=== PATIENT | female | born 1940 | race Caucasian/White ===

== ENCOUNTER 2022-01-03 09:41 | Outpatient (CLI) | payer MEDICARE, SELFPAY ==
--- NOTE | ~2022-01-03 | DEXA_ITS ---
Bone Density Report Name: JOSE J TORRES Age: 81 Sex: Female Ethnicity: White Date of : 1940 Indication: osteopenia; height loss; prior fracture; Referring Provider: WILMER GUERRERO Study: Bone densitometry was performed. Exam Date: January 03, 2022 Accession number: [id number] Bone Density: Region BMD T-score Z-score Classification AP Spine(L1-L4) 0.884 -1.5 1.3 Osteopenia Femoral Neck (Left) 0.609 -2.2 0.3 Osteopenia Total Hip (Left) 0.720 -1.8 0.4 Osteopenia Femoral Neck (Right) 0.635 -1.9 0.5 Osteopenia Total Hip (Right) 0.732 -1.7 0.5 Osteopenia Total Hip Mean 0.726 -1.8 0.5 Osteopenia World Health Organization criteria for BMD impression classify patients as: Normal (T-score at or above -1.0), Osteopenia (T-score between -1.0 and -2.5), or Osteoporosis (T-score at or below -2.5). 10-year Fracture Risk(1): Major Osteoporotic Fracture 23% Hip Fracture 6.9% Reported Risk Factors: [place] (), Neck BMD=0.609, BMI=27.3, previous fracture (1) FRAX(R) Version 3.08. Fracture probability calculated for an untreated patient. Fracture probability may be lower if the patient has received treatment. Previous Exams: Region Exam Age BMD T-score BMD Change BMD Change Date g/cm2 vs Baseline vs Previous AP Spine (L1-L4) 01/03/2022 81 0.884 -1.5 0.010 (1.1%) 0.010 (1.1%) 07/07/2018 78 0.874 -1.6 Total Hip(Left) 01/03/2022 81 0.720 -1.8 -0.007 (-1.0%) -0.007 (-1.0%) 07/07/2018 78 0.727 -1.8 Total Hip(Right) 01/03/2022 81 0.732 -1.7 0.056 (8.3%)* 0.056 (8.3%)* 07/07/2018 78 0.676 -2.2 *Denotes significance at 95% confidence level, LSC for AP Spine = 0.022 g/cm2, LSC for Total Hip = 0.027 g/cm2 Clinical Information Provided by Patient: Has had a low trauma fracture Patient maximum height was 63 Menopause Age: 44 No regular weight bearing exercise Onset of menses at age 10 Number of children 0 Impression: The patient has low bone mass, based on the Left Femoral Neck T-score. The patient has an estimated ten-year risk of hip fracture of 6.9% and an estimated ten-year risk of major fracture of 23%, based on the WHO FRAX algorithm. The patient has risk factors, including: previous fracture. No significant bone loss was observed. Discussion: BONE DENSITY IS LOW AT ONE OR MORE SKELETAL SITES. THE PATIENT'S BMD AND CLINICAL RISK FACTORS CONTRIBUTE TO THIS PATIENT'S HIGH RISK OF FR
--- NOTE | ~2022-01-03 | MM_ITS ---
EXAMINATION: MM screening lis BI w brant HISTORY: Screening mammogram, family history of breast cancer in her mother. TECHNIQUE: Craniocaudal and mediolateral oblique 3-D tomosynthesis images were obtained and synthetic 2-D images were generated. CAD analysis was submitted and interpreted. COMPARISON: 07/07/2018, 06/03/2017, 05/30/2016 BREAST PARENCHYMAL COMPOSITION: The breasts are almost entirely fatty. FINDINGS: There is no suspicious mass, calcification, or architectural distortion to suggest malignan cy in either breast. There has been no suspicious interval change. IMPRESSION: 1. No mammographic evidence of malignancy. 2. Recommend routine screening mammography while the patient remains in good health. BI-RADS Category 1: Negative Reviewed, dictated and finalized at location D. IMPRESSION: 1. No mammographic evidence of malignancy. 2. Recommend routine screening mammography while the patient remains in good he alth. BI-RADS Category 1: Negative
== END 2022-01-03 09:42 | disposition home or self-care (01) ==
PROVIDERS: PCP Family Medicine; Visit Provider Family Medicine
DX: Z12.31 Encounter for screening mammogram for malignant neoplasm of breast (principal); M81.0 Age-related osteoporosis without current pathological fracture; M85.88 Other specified disorders of bone density and structure, other site; M85.852 Other specified disorders of bone density and structure, left thigh; M85.851 Other specified disorders of bone density and structure, right thigh
CPT/HCPCS: 77063; 77067; 77080

== ENCOUNTER 2023-06-17 09:20 | Outpatient (CLI) | payer MEDICARE, SELFPAY ==
--- NOTE | ~2023-06-17 | MM_ITS ---
EXAMINATION: MM screening lis BI w brant HISTORY: Screening mammogram TECHNIQUE: Craniocaudal and mediolateral oblique 3-D tomosynthesis images were obtained and synthetic 2-D images were generated. CAD analysis was submitted and interpreted. COMPARISON: 01/03/2022, 07/07/2018 bilateral screening mammogram examinations BREAST PARENCHYMAL COMPOSITION: The breasts are almost entirely fatty. FINDINGS: There is no evidence of suspicious mass, calcification, or architectural distortion to sugg est malignancy in either breast. There has been no suspicious interval change. IMPRESSION: 1. No mammographic evidence of malignancy. 2. Recommend routine screening mammography in one year. BI-RADS Category 1: Negative Reviewed, dictated and finalized at location A. ENER HELPER
== END 2023-06-17 09:21 | disposition home or self-care (01) ==
LOC: ANHIMG 09:25
PROVIDERS: PCP Family Medicine; Visit Provider Nurse Practitioner Family
DX: Z12.31 Encounter for screening mammogram for malignant neoplasm of breast (principal)
CPT/HCPCS: 77063; 77067

== ENCOUNTER 2024-07-01 15:16 | Outpatient (CLI) | payer MEDICARE, SELFPAY ==
[2024-07-01 19:59] LABS: Alanine Aminotransferase 16 U/L (6-35); Albumin Level 4.5 g/dL (3.5-5.1); Alkaline Phosphatase 84 U/L (38-126); Anion Gap 11 mmol/L (4-12); Aspartate Amino Transferase 26 U/L (14-36); Bilirubin,Total 0.5 mg/dL (0.2-1.3); Blood Urea Nitrogen 19 mg/dL (7-17); Calcium 9.9 mg/dL (8.4-10.2); Carbon Dioxide 28 mmol/L (22-30); Chloride 105 mmol/L (98-107); Estimated Glomerular Filt Rate > 60; Glucose 99 mg/dL (65-110); Potassium 3.8 mmol/L (3.4-5.0); Sodium 144 mmol/L (137-145)
[2024-07-02 00:35] LABS: Vitamin D 25 Hydroxy 25.3 ng/mL
== END 2024-07-01 15:17 | disposition home or self-care (01) ==
LOC: ANHGOSHLAB 15:17
PROVIDERS: PCP Family Medicine; Visit Provider Family Medicine
DX: E78.5 Hyperlipidemia, unspecified (principal); I10 Essential (primary) hypertension; E03.9 Hypothyroidism, unspecified; E55.9 Vitamin D deficiency, unspecified; E53.8 Deficiency of other specified B group vitamins; M81.0 Age-related osteoporosis without current pathological fracture
CPT/HCPCS: 36415; 80053; 82306; 82607; 84443

== ENCOUNTER 2024-08-06 16:16 | Outpatient (CLI) | payer MEDICARE, SELFPAY ==
--- NOTE | ~2024-08-06 | MM_ITS ---
EXAMINATION: MM screening [facility] BI w brant HISTORY: Screening TECHNIQUE: Craniocaudal and mediolateral oblique 3-D tomosynthesis images were obtained and synthetic 2-D images were generated. CAD analysis was submitted and interpreted. COMPARISON: Comparison to multiple prior studies sequentially, with oldest reviewed study dated 05/30 2. BREAST PARENCHYMAL COMPOSITION: Not Dense: The breasts are almost entirely fatty. FINDINGS: There is no evidence of suspicious mass, calcification, or architectural distortion to sugg est malignancy in either breast. There has been no suspicious interval change. IMPRESSION: 1. No mammographic evidence of malignancy. 2. Recommend routine screening mammography in one year. BI-RADS Category 1: Negative Reviewed, dictated and finalized at location A.
== END 2024-08-06 16:17 | disposition home or self-care (01) ==
PROVIDERS: PCP Family Medicine; Visit Provider Family Medicine
DX: Z12.31 Encounter for screening mammogram for malignant neoplasm of breast (principal)
CPT/HCPCS: 77063; 77067

== ENCOUNTER 2024-08-31 08:18 | Outpatient (CLI) | payer MEDICARE, SELFPAY ==
--- NOTE | ~2024-08-31 | DEXA_ITS ---
Bone Density Report Name: JOSE J TORRES Age: 84 Sex: Female Ethnicity: White Date of : 1940 Indication: osteopenia; height loss; prior fracture; Referring Provider: WILMER GUERRERO Study: Bone densitometry was performed. Exam Date: August 31, 2024 Accession number: [id number] Bone Density: Region BMD T-score Z-score Classification AP Spine(L1-L4) 0.854 -1.8 1.1 Osteopenia Femoral Neck (Left) 0.589 -2.3 0.2 Osteopenia Total Hip (Left) 0.763 -1.5 0.9 Osteopenia Femoral Neck (Right) 0.588 -2.4 0.2 Osteopenia Total Hip (Right) 0.705 -1.9 0.4 Osteopenia Total Hip Mean 0.734 -1.7 0.7 Osteopenia World Health Organization criteria for BMD impression classify patients as: Normal (T-score at or above -1.0), Osteopenia (T-score between -1.0 and -2.5), or Osteoporosis (T-score at or below -2.5). 10-year Fracture Risk(1): Major Osteoporotic Fracture 25% Hip Fracture 8.0% Reported Risk Factors: [place] (), Neck BMD=0.588, BMI=25.5, previous fracture (1) FRAX(R) Version 3.08. Fracture probability calculated for an untreated patient. Fracture probability may be lower if the patient has received treatment. Previous Exams: Region Exam Age BMD T-score BMD Change BMD Change Date g/cm2 vs Baseline vs Previous AP Spine (L1-L4) 08/31/2024 84 0.854 -1.8 -0.020 (-2.3%) -0.030 (-3.4%) 01/03/2022 81 0.884 -1.5 0.010 (1.1%) 0.010 (1.1%) 07/07/2018 78 0.874 -1.6 Total Hip(Left) 08/31/2024 84 0.763 -1.5 0.036 (5.0%)* 0.043 (6.0%)* 01/03/2022 81 0.720 -1.8 -0.007 (-1.0%) -0.007 (-1.0%) 07/07/2018 78 0.727 -1.8 Total Hip(Right) 08/31/2024 84 0.705 -1.9 0.029 (4.3%)* -0.027 (-3.7%) 01/03/2022 81 0.732 -1.7 0.056 (8.3%)* 0.056 (8.3%)* 07/07/2018 78 0.676 -2.2 *Denotes significance at 95% confidence level, LSC for AP Spine = 0.022 g/cm2, LSC for Total Hip = 0.027 g/cm2 Clinical Information Provided by Patient: Has had a low trauma fracture Patient maximum height was 63.0 Menopause Age: 44 No regular weight bearing exercise Onset of menses at age 10 Number of children 0 Impression: The patient has low bone mass, based on the Right Femoral Neck T-score. The patient has an estimated ten-year risk of hip fracture of 8% and an estimated ten-year risk of major fracture of 25%, based on the WHO FRAX algorithm. The patient has risk factors, including: previous fracture. The BMD for the AP Spine (L1-L4) decreased, changing by -3.4% since the last DXA exam. Discussion: BONE DENSITY IS LOW AT ONE OR MORE SKELETAL SITES. THE PATIENT'S BMD AND CLINICAL RISK FACTORS CONTRIBUTE TO THIS PATIENT'S HIGH RISK OF FRACTURE. This patient's lowest T-score is low at one or more skeletal sites. It meets the World Health Organization's (WHO) criteria for “low bone mass” (T-score between -1.0 and -2.5). The patient's 10-year risk of hip fracture and 10 year risk of a major osteoporotic fracture as calculated by FRAX exceeds the threshold where pharmacological therapy is recommended by the National Osteoporosis Foundation (NOF). However, all treatment decisions require clinical judgment and consideration of individual patient factors, including patient preferences, comorbidities, previous drug use, risk factors not captured in the FRAX model (e.g., frailty, falls, vitamin D deficiency, increased bone turnover, interval significant decline in bone density) and possible under or overestimation of fracture risk by FRAX. The patient should follow a healthful lifestyle (good nutrition with adequate calcium and vitamin D, and appropriate weight-bearing exercise). Follow-Up: Consider a repeat BMD and Vertebral Fracture Assessment (VFA) exam in 2 years or sooner if medically necessary, to reassess this patient's status. Reported by: CARLOS on 08/31/2024 8:52:00 AM. Reviewed, dictated and finalized at location A.
== END 2024-08-31 08:19 | disposition home or self-care (01) ==
LOC: ANHIMG 08:19
PROVIDERS: PCP Family Medicine; Visit Provider Family Medicine
DX: M81.0 Age-related osteoporosis without current pathological fracture (principal); M85.88 Other specified disorders of bone density and structure, other site; M85.852 Other specified disorders of bone density and structure, left thigh; M85.851 Other specified disorders of bone density and structure, right thigh
CPT/HCPCS: 77080

== ENCOUNTER 2025-01-22 01:21 | Day surgery (SDC) | payer MEDICARE, SELFPAY ==
[2025-01-14 08:42] VITALS: BMI 26.2
[2025-01-22 08:46] VITALS: BP 171/82; PULSE 88; RESP 18; TEMP 36; O2SAT 100
[2025-01-22] MEDS: LACTATED RINGERS 1,000 ML 150 ML IV CONT (09:01)
[2025-01-22] MEDS: SIMETHICONE ORAL SUSPENSION 20 MG/0.3 ML 30 ML BOTTLE 1.8 ML PO (09:02)
--- NOTE | 2025-01-22 09:26 | P.PNAN_ITS ---
Anes - Initial Pre Proc Eval Procedure: Operation Date: 01/22/25 10:00 Proposed Procedures p Esophagogastroduodenoscopy - Elfego Hogue MD Date/Time: 01/22/25 09:26 Surgeon: Elfego Hogue MD Pre Op Diagnosis: Esophageal obstruction Patient Data Age: 84 Gender: F Height: 1.55 m Weight: 62.5 kg Last Vital Signs Temp 36.0 C L 01/22/25 08:46 Pulse 88 01/22/25 08:46 Resp 18 01/22/25 08:46 BP 171/82 H 01/22/25 08:46 Pulse Ox 100 01/22/25 08:46 O2 Del Method Room Air 01/22/25 08:46 Allergies Allergy/AdvReac Type Severity Reaction Status Date / Time No Known Allergies Allergy Verified 01/22/25 08:43 Home Medications ?Medication ?Instructions ?Recorded ?Confirmed ?Type calcium carbonate (Tums) 200 mg PO BID #90 tabs 07/2401/22/25 Rx metoprolol succinate 50 mg See Rx Instructions .Route 03/31/24 01/22/25 Rx tablet,extended release 24 hr .COMPLEX #90 tabs amlodipine 5 mg tablet See Rx Instructions .Route 0 08/19/24 01/22/25 Rx .COMPLEX #90 tabs Patient hx anesthesia problems: none Family hx anesthesia problems: none Results Review: All pre-operative results and documents have been reviewed as part of the pre- operative evaluation. [facility] Past Medical History Medical History Hyperlipidemia, unspecified Hypothyroid Cerebral ischemia Essential (primary) hypertension Broken thumb Overweight (BMI 25.0-29.9) Peripheral neuropathy Colon polyp (~2007) benign adenomatous History of mumps History of measles Calculus of kidney Urinary calculus, unspecified Surgical History Surgical History History of colonoscopy (~05/21/07) Hx of cholecystectomy (~1976) Family History Family History Father Patient's father is , Onset Age: 62 Mother Family history of cardiovascular disease, Onset Age: 90 Other Family history of malignant neoplasm of breast in first degree relative Social History Social History Social History: Caffeine-soda occasionally Smoking status: Never smoker Alcohol intake: never Lack of Transportation: No Lack of Food: Never True Current Housing: I Have Housing Concerned About Future Housing: No Difficulty Paying Gas/Electric Bills: No Difficulty Paying for Meds: No Currently Unemployed: No Education: High School Diploma/GED Difficulty w/ Childcare or Family Care: No Spiritual care concerns: No Anes - Eval Final PreProcedure Day of Procedure 01/22/25 09:26 Patient weight: overweight Heart: regular rate and rhythm Lungs: clear to auscultation Airway: Mallampati scale class II Neurological: alert and oriented Last oral intake: >/= 8 hours ASA classification: III Emergent: no Anesthetic plan: proceed Anesthesia type and monitoring: general GIVS and standard monitoring Results Review: All pre-operative results and documents have been reviewed as part of the pre- operative evaluation. Informed Consent: The patient's anesthetic plan and its attendant risks and benefits were discussed with the patient/family/POA. Questions were solicited and answers provided to the satisfaction of the patient/family/POA.
--- NOTE | 2025-01-22 10:22 | PM.IMHP ---
H&P: HPI History of Present Illness Date/Time: 01/22/25 10:22 Chief Complaint: Dysphagia Narrative: the patient has been complaining of intermittent dysphagia to solids for years. There is no unintentional weight loss or dysphagia to liquids. She is referred for EGD. Review of Systems Review of Systems: All systems reviewed & are unremarkable except as noted in HPI and below PMFSH Past Medical History Medical History Hyperlipidemia, unspecified Hypothyroid Cerebral ischemia Essential (primary) hypertension Broken thumb Overweight (BMI 25.0-29.9) Peripheral neuropathy Colon polyp (~2007) benign adenomatous History of mumps History of measles Calculus of kidney Urinary calculus, unspecified Surgical History Surgical History History of colonoscopy (~05/21/07) Hx of cholecystectomy (~1976) Family History Family History Father Patient's father is , Onset Age: 62 Mother Family history of cardiovascular disease, Onset Age: 90 Other Family history of malignant neoplasm of breast in first degree relative Social History Social History Social History: Caffeine-soda occasionally Smoking status: Never smoker Alcohol intake: never Lack of Transportation: No Lack of Food: Never True Current Housing: I Have Housing Concerned About Future Housing: No Difficulty Paying Gas/Electric Bills: No Difficulty Paying for Meds: No Currently Unemployed: No Education: High School Diploma/GED Difficulty w/ Childcare or Family Care: No Spiritual care concerns: No Meds Home Medications and Allergies Home Medications ?Medication ?Instructions ?Recorded ?Confirmed ?Type calcium carbonate (Tums) 200 mg PO BID #90 tabs 07/25/23 01/22/25 Rx metoprolol succinate 50 mg See Rx Instructions .Route 03/31/24 01/22/25 Rx tablet,extended release 24 hr .COMPLEX #90 tabs amlodipine 5 mg tablet See Rx Instructions .Route 08/19/24 01/22/25 Rx .COMPLEX #90 tabs Allergies Allergy/AdvReac Type Severity Reaction Status Date / Time No Known Allergies Allergy Verified 01/22/25 08:43 Vital Signs Vital Signs - 24 hr 01/22/25 08:46 Temperature 96.8 F L Pulse Rate 88 Respiratory Rate 18 Blood Pressure 171/82 H Pulse Oximetry 100 Oxygen Delivery Room Air Exam Const: General: cooperative and healthy appearing Resp: Effort & Inspection: normal respiratory effort and able to speak in complete sentences Auscultation: clear to auscultation bilaterally Cardio: Rate: regular rate Rhythm: regular rhythm GI: Inspection: normal to inspection GI Palp: No No hepatosplenomegaly present Auscultation: normal bowel sounds Rectal Exam: deferred Skin: General skin exam: normal color Psych: Appearance: grossly normal Mental Status: mental status grossly normal Assessment and Plan Assessment and plan (1) Dysphagia: Code(s): R13.10 - Dysphagia, unspecified Status: Acute Assessment and Plan: The patient is deemed a good candidate for the procedure. Consent signed. Will proceed.
[2025-01-22] MEDS: BENZOCAINE (*SP) 60 ML SPRAY CAN (HURRICAINE) 1 SPRAY MUCOUS MEM (10:27)
--- NOTE | 2025-01-22 10:42 | S_PTH ---
PATIENT: Padmini Plasencia LOC: [facility] U#:[id number] AGE/SX: 84/F ROOM: RE01/22/[address]: Elfego Hogue MD : 1940 BED: DIS: 01/22/2025 SPEC #: [id number] RECD: 01/22/25 11:28 STATUS: BELINDA REQ #: [id number] [place]: 01/22/25 10:[address]: Elfego Hogue DEPT: [facility] Surgical RECD BY: Kendal Bowser ENTERED: 01/22/25 11:29 SP TYPE: Surgical OTHR DR: Woody Garces MD Tissues: A - Esophageal Biopsy B - Biopsy Procedures: Hematoxylin and Eosin Stain Gross and Microscopic Level 4 H.Pylori
[2025-01-22 10:50] VITALS: BP 95/49; PULSE 83; RESP 20; O2SAT 97
[2025-01-22 11:00] VITALS: BP 107/61; PULSE 77; RESP 20; O2SAT 97
[2025-01-22 11:10] VITALS: BP 131/74; PULSE 79; RESP 19; O2SAT 100
== END 2025-01-22 11:40 | disposition home or self-care (01) ==
PROVIDERS: PCP Family Medicine; Referring Provider Family Medicine; Visit Provider Internal Medicine Gastroenterology
PROC: 0DJ08ZZ Inspection of Upper Intestinal Tract, Via Natural or Artificial Opening Endoscopic (ICD-10-PCS; CPT 43249; principal; 2025-01-22 10:00)
DX: K22.2 Esophageal obstruction (principal); K22.81 Esophageal polyp; K29.50 Unspecified chronic gastritis without bleeding; K31.7 Polyp of stomach and duodenum; K44.9 Diaphragmatic hernia without obstruction or gangrene; E78.5 Hyperlipidemia, unspecified; I10 Essential (primary) hypertension; E03.9 Hypothyroidism, unspecified; I67.82 Cerebral ischemia; G62.9 Polyneuropathy, unspecified; Z90.49 Acquired absence of other specified parts of digestive tract; Z86.0100 Personal history of colon polyps, unspecified; Z87.442 Personal history of urinary calculi; Z80.3 Family history of malignant neoplasm of breast; Z82.49 Family history of ischemic heart disease and other diseases of the circulatory system
CPT/HCPCS: 43249; 43239; 88305; 88342; C1726; J2003; J2704; J7120